=== PATIENT | male | born 1950 | race Caucasian/White ===

== ENCOUNTER 2020-11-19 08:47 | Emergency (ER) | payer OTHER ==
--- OUTSIDE RECORDS SUMMARY | 2020-11-19 08:49 | XMS REPORT | Continuity of Care Document ---
:1950 Author Organization [facility] t Address [address] [place] [address] [address] [place] [address] Care Team Providers Name Role Phone Doctor Unassigned, Name Attending Clinician Unavailable Problems This patient has no known problems. Allergies, Adverse Reactions, Alerts This patient has no known allergies or adverse reactions. Medications This patient has no known medications. Procedures This patient has no known procedures. Encounters Start End Encounter Admission Attending Care Care Encounter Source Date/Time Date/Time Type Type Clinicians Facility Department ID 2019-06-25 2019-06-25 Orders Doctor SONJA [id number] 00:00:00 00:00:00 Only UnassignedJOHN PAUL [id number] [place] [facility] [id number] Results This patient has no known results.
[2020-11-19] MEDS ORDERED: DIAZEPAM 5 MG TABLET ONE (09:47)
[2020-11-19] MEDS ORDERED: ONDANSETRON 4 MG (ODT) TAB ONE (09:48)
[2020-11-19 10:00] LABS: Basophils % 0.2 % (0-1.3); Hematocrit 43.1 % (39.6-49.0); Lymphocytes % 13.6 % (15.3-44.8); Protime INR 1.15; RBC Red Blood Cell Count 4.89 M/uL (4.33-5.43)
[2020-11-19 10:09] LABS: ALT/SGPT 23 U/L (12-78); AST/SGOT 25 U/L (15-37); Albumin 3.7 g/dL (3.4-5.0); Alkaline Phosphatase 74 U/L (45-117); BUN Blood Urea Nitrogen 17 mg/dL (7-18); Bicarbonate 26 mmol/L (21-32); Bilirubin Direct 0.2 mg/dL (0-0.2); Bilirubin Total 0.9 mg/dL (0.2-1.0); Glucose Level 102 mg/dL (74-106); Magnesium 2.2 mg/dL (1.8-2.4); NT PRO-BNP 32 pg/mL (<125); Potassium 3.2 mmol/L (3.5-5.1); Protein, Total 8.2 g/dL (6.4-8.2); Sodium Level 139 mmol/L (136-145); Troponin (Emerg Dept Use Only) < 0.02 ng/mL (0.0-0.045)
--- NOTE | 2020-11-19 11:44 | RAD REPORT ---
EXAM DESCRIPTION: RAD - Chest Single View - 11/19/2020 10:22 am CLINICAL HISTORY: dizziness, shortness of breath COMPARISON: Chest exam March 2017 TECHNIQUE: AP portable chest image was obtained 11/19/2020 10:22 am . FINDINGS: No focal mass consolidation. Interstitial markings are prominent but not substantially dif ferent from comparison. Baseline prominence could mask minimal edema or infiltrate. No mediastinal ma ss or hilar lymphadenopathy. Heart and vasculature are normal. No measurable pleural effusion and no pneumothorax. No acute bony abnormality seen. No acute aortic findings suspected. IMPRESSION: No acute cardiopulmonary process. Baseline chronic interstitial pattern is similar to comparison. Severity of chronic pattern could mas k early interstitial edema or infiltrate.
--- NOTE | 2020-11-19 11:51 | RAD REPORT ---
EXAM DESCRIPTION: CT - Head Brain Wo Cont - 11/19/2020 11:37 am CLINICAL HISTORY: dizziness, headache COMPARISON: Head angio dated 11/19/2020; Neck Angio dated 11/19/2020 TECHNIQUE: Axial 5 mm thick images of the head were obtained without IV contrast. All CT scans are performed using dose optimization technique as appropriate and may include automated exposure control or mA/KV adjustment according to patient size. FINDINGS: No intracranial hemorrhage, mass, edema or shift of mid-line structures. No acute cortical based infarction. No cortical edema or sulcal effacement. Mild atrophy and mild chronic ischemic miguelito nges are present. No abnormal extra-axial fluid collections. Ventricles are in proportion to volume l oss. Arterial and physiologic calcifications are present. Mastoid air cells and visualized portions of the paranasal sinuses are clear. No acute bony findings. IMPRESSION: Mild atrophy and mild chronic ischemic change. No acute findings seen.
--- NOTE | 2020-11-19 11:57 | RAD REPORT ---
EXAM DESCRIPTION: CT - Head angio - 11/19/2020 11:38 am CLINICAL HISTORY: DIZZINESS TECHNIQUE: During dynamic enhancement using nonionic IV contrast, axial 1 millimeter thick images of the head were obtained. Sagittal and axial reconstruction images were generated using MIP technique and reviewed. All CT scans are performed using dose optimization technique as appropriate and may include automated exposure control or mA/KV adjustment according to patient size. COMPARISON: CT head same date FINDINGS: No aneurysm or vascular malformation identified. Major venous sinuses are patent. No stenosis, named branch occlusion, vasculitis or other significant vascular finding identifiable. Cavernous sinus internal carotid calcifications do not cause significant luminal narrowing. IMPRESSION: Negative CT angio head examination.
--- NOTE | 2020-11-19 12:00 | RAD REPORT ---
EXAM DESCRIPTION: CT - Neck Angio - 11/19/2020 11:38 am CLINICAL HISTORY: dizziness TECHNIQUE: During dynamic enhancement using nonionic IV contrast, axial 2 mm thick images of the nec k were obtained. Sagittal and axial reconstruction images were generated using MIP technique and revi ewed. All CT scans are performed using dose optimization technique as appropriate and may include automated exposure control or mA/KV adjustment according to patient size. FINDINGS: No aneurysm or vascular malformation identified. No carotid or vertebral dissection. No aortic arch or great vessel origin abnormality seen. Right vertebral artery origin and proximal fe w cm and not optimally seen but no abnormality identified. No stenosis, vasculitis or other significa nt carotid artery finding. No focal abnormality of either vertebral artery. Basilar artery is normal. Cervical vertebral body degenerative change present with multilevel disc space narrowing in the mid a nd lower cervical spine. Multilevel bony foraminal encroachment present as well. IMPRESSION: CT angio neck study shows no significant or suspicious vascular finding.
[2020-11-19] MEDS ORDERED: NA CHLORIDE 0.9% 1,000 ML ONE (13:35)
[2020-11-19] MEDS ORDERED: MECLIZINE HCL 12.5 MG TAB ONE (13:35)
[2020-11-19] MEDS ORDERED: dexAMETHasone 10 MG/ML VIAL ONE (13:35)
[2020-11-19] MEDS ORDERED: LEVALBUTEROL 1.25 MG/3 ML NEB ONE (13:35)
[2020-11-19] MEDS ORDERED: ACETAMINOPHEN 500 MG TAB ONE (15:30)
--- NOTE | 2020-11-19 16:20 | ER ---
Nurse's Notes [facility] Name: Lionel Taylor Age: 70 yrs Sex: Male : 1950 Arrival Date: 11/19/2020 Time: 08:48 Bed 23 Private MD: Diagnosis: Other viral infections of unspecified site;Vertigo Presentation: 11/19 09:17 Chief complaint: Patient states: headaches and diarrhea for months, worse over past two iw weeks, also has a cough and dizziness when he coughs. Coronavirus screen: diarrhea, nausea, Client presents with at least one sign or symptom that may indicate coronavirus-19. Ebola Screen: Patient negative for fever greater than or equal to 101.5 degrees Fahrenheit, and additional compatible Ebola Virus Disease symptoms Patient denies exposure to infectious person. Patient denies travel to an Ebola-affected area in the 21 days before illness onset. No symptoms or risks identified at this time. Initial Sepsis Screen: Does the patient meet any 2 criteria? No. Patient's initial sepsis screen is negative. Does the patient have a suspected source of infection? No. Patient's initial sepsis screen is negative. Risk Assessment: Do you want to hurt yourself or someone else? Patient reports no desire to harm self or others. Onset of symptoms was September 2020. 09:17 Method Of Arrival: Ambulatory iw 09:17 Acuity: ROZINA 3 iw Historical: - PMHx: 09:19 Hyperlipidemia; Hypothyroidism; iw - PSHx: 09:19 rotator cuff; Knee surgery; iw - Immunization history:: Adult Immunizations up to date. - Social history:: Smoking status: . Screenin:19 Abuse screen: Denies threats or abuse. Denies injuries from another. Nutritional iw screening: No deficits noted. Tuberculosis screening: No symptoms or risk factors identified. Fall Risk None identified. Assessment: 09:19 General: Appears in no apparent distress. Behavior is calm, cooperative. Pain: iw Complains of pain in head. Neuro: Level of Consciousness is awake, alert, obeys commands, Oriented to person, place, time, situation, Moves all extremities. Full function. Neuro: Reports dizziness. Cardiovascular: Patient's skin is warm and dry. Respiratory: Airway is patent Breath sounds are clear bilaterally. GI: Reports diarrhea, nausea, vomiting. Derm: Skin is intact, is healthy with good turgor. Musculoskeletal: Range of motion: intact in all extremities. 13:30 Reassessment: pt still c/o dizziness and headache. iw 16:00 Reassessment: Patient appears in no apparent distress at this time. Patient and/or iw family updated on plan of care and expected duration. Pain level reassessed. Patient is alert, oriented x 3, equal unlabored respirations, skin warm/dry/pink. Vital Signs: 09:17 BP 143 / 90; Pulse 97; Resp 18; Temp 98.7; Pulse Ox 94% on R/A; iw 15:18 BP 115 / 65; Pulse 91; Resp 16; Temp 98.9; Pulse Ox 98% on R/A; iw ED Course: 08:48 Patient arrived in ED. as 09:18 Triage completed. iw 09:19 Arm band placed on. iw 09:20 Patient has correct armband on for positive identification. iw 09:22 Zachary Burleson PA is PHCP. jmm 09:23 Apollo Baeur MD is Attending Physician. jmm 09:29 Maribel Thakkar, MONA is Primary Nurse. iw 10:18 XRAY Chest (1 view) In Process Unspecified. EDMS 11:37 CT Head Brain wo Cont In Process Unspecified. EDMS 11:38 CT Head Angio In Process Unspecified. EDMS 11:38 CT Neck Angio In Process Unspecified. EDMS 13:00 Initial lab(s) drawn, by wy, sent to lab. Inserted saline lock: 20 gauge in right iw antecubital area, using aseptic technique. Blood collected. 16:19 Oscar Wright MD is Referral Physician. [facility] 16:19 Snehal Catehrine MD is Referral Physician. [facility] 16:19 Referral Physician role handed off by Snehal Catherine MD m 16:51 No provider procedures requiring assistance completed. IV discontinued, intact, iw bleeding controlled, No redness/swelling at site. Pressure dressing applied. Administered Medications: : Drug: Zofran (Ondansetron) 4 mg Route: PO; iw :41 Drug: Valium 5 mg Route: PO; iw 13:38 Drug: NS 0.9% 1000 ml Route: IV; Rate: 1 bolus; Site: right antecubital; iw 13:38 Drug: Xopenex (3) 1.25 mg Route: Inhalation; iw 13:39 Drug: Meclizine 25 mg Route: PO; iw 13:46 Drug: Decadron - Dexamethasone 10 mg Route: IVP; Site: right antecubital; iw 15:10 Drug: Tylenol 1000 mg Route: PO; iw 16:35 Drug: fentaNYL (PF) 25 mcg Route: IVP; Site: right antecubital; iw Outcome: 16:20 Discharge ordered by MD. alejandra 16:51 Discharged to home ambulatory, with family. iw 16:51 Condition: good 16:51 Discharge instructions given to patient, Instructed on discharge instructions, follow up and referral plans. medication usage, Demonstrated understanding of instructions, follow-up care, medications, Prescriptions given X 4. 16:52 Patient left the ED. 4 Addendum: 11/22/2020 09:32 Addendum: COVID-19 Result: Positive result giiven to ED physician to notify pt. d m5 Physician: Bryson Currie MD Physician attempted to contact pt. Physician left voice mail for pt to call the ED back. 10:00 Addendum: COVID-19 Result: Positive result giiven to ED physician to notify pt. d m5 Physician: Bryson Currie MD Physician was able to contact pt and pt was notified of positive COVID-19 swab result. Physician answered pt questions. Signatures: Dispatcher [employer] Leisa Katz, RN RN dm5 Zachary Burleson PA PA jmm Martinez, Amelia as Williams, Irene, RN RN [facility] Corrections: (The following items were deleted from the chart) 11/20 08:45 11/19 15:30 Reassessment: Patient appears in no apparent distress at this time. Patient iw and/or family updated on plan of care and expected duration. Pain level reassessed. Patient is alert, oriented x 3, equal unlabored respirations, skin warm/dry/pink. iw
--- NOTE | 2020-11-19 16:20 | EDPHYS ---
Physician Documentation [facility] Name: Lionel Taylor Age: 70 yrs Sex: Male : 1950 Arrival Date: 11/19/2020 Time: 08:48 Bed 23 Private MD: ED Physician Apollo Bauer HPI: 11/19 10:01 This 70 yrs old Male presents to ER via Ambulatory with complaints of Cough, jmm Congestion, Sneezing, Dizziness. 10:01 The patient presents with dizziness. Onset: The symptoms/episode began/occurred jmm acutely, 3 month(s) ago. Modifying factors: The symptoms are alleviated by holding head still, the symptoms are aggravated by movement of head, standing up, changing position. Associated signs and symptoms: Pertinent positives: nausea, vomiting, Pertinent negatives: chest pain. This is a 70 year old male with a history of hlp, hypothyroidism that presents to the ED with complaints of dizziness beginning 3 months ago. Patient states symptoms worsened over the past 2 weeks. . Historical: - PMHx: 09:19 Hyperlipidemia; Hypothyroidism; iw - PSHx: 09:19 rotator cuff; Knee surgery; iw - Immunization history:: Adult Immunizations up to date. - Social history:: Smoking status: . ROS: 10:01 Constitutional: Negative for fever, chills, and weight loss. jmm 10:01 Respiratory: Positive for cough. 10:01 Abdomen/GI: Positive for nausea and vomiting. 10:01 Neuro: Positive for dizziness. 10:01 All other systems are negative. Exam: 10:01 Constitutional: This is a well developed, well nourished patient who is awake, alert, jmm and in no acute distress. Head/Face: atraumatic. 10:01 Cardiovascular: Regular rate and rhythm. No edema appreciated Respiratory: Normal respirations, no respiratory distress appreciated Abdomen/GI: Non distended, soft Back: Normal ROM Skin: General appearance color normal 10:01 Eyes: Extraocular movements: intact throughout, Nystagmus: nystagmus with fast component noted, bilaterally. 10:01 Musculoskeletal/extremity: ROM: intact in all extremities. 10:01 Skin: Appearance: Color: normal in color. 10:01 Neuro: Orientation: is normal, Mentation: is normal, Memory: is normal, Cerebellar function: normal finger to nose testing. 10:01 Psych: Behavior/mood is pleasant, cooperative. Vital Signs: 09:17 BP 143 / 90; Pulse 97; Resp 18; Temp 98.7; Pulse Ox 94% on R/A; iw 15:18 BP 115 / 65; Pulse 91; Resp 16; Temp 98.9; Pulse Ox 98% on R/A; iw MDM: 09:53 Patient medically screened. [facility] 16:17 Data reviewed: vital signs, nurses notes. Counseling: I had a detailed discussion with alejandra the patient and/or guardian regarding: the historical points, exam findings, and any diagnostic results supporting the discharge/admit diagnosis, lab results, radiology results, the need for outpatient follow up, to return to the emergency department if symptoms worsen or persist or if there are any questions or concerns that arise at home. ED course: Patient is alert and non toxic in appearance in the ED. No signs of resp distress. Most likely has a viral syndrome, I do not suspect central vertigo. CTA negative. Patient is advised to follow up with neuro and ent. patient understood and agrees with the plan of care. . 11/19 09:25 Order name: Basic Metabolic Panel; Complete Time: 10:21 [facility] 11/19 09:25 Order name: CBC with Diff; Complete Time: 10:21 [facility] 11/19 09:25 Order name: LFT's; Complete Time: 10:21 [facility] 11/19 09:25 Order name: Magnesium; Complete Time: 10:21 [facility] 11/19 09:25 Order name: NT PRO-BNP; Complete Time: 10:21 [facility] 11/19 09:25 Order name: PT-INR; Complete Time: 10:21 [facility] 11/19 09:25 Order name: Troponin (emerg Dept Use Only); Complete Time: 10:21 [facility] 11/19 09:25 Order name: XRAY Chest (1 view); Complete Time: 11:51 [facility] 11/19 10:22 Order name: CT Head Brain wo Cont; Complete Time: 11:59 [facility] 11/19 10:22 Order name: CT Head Angio; Complete Time: 11:59 [facility] 11/19 10:22 Order name: CT Neck Angio; Complete Time: 12:04 [facility] 11/19 13:09 Order name: Flu; Complete Time: 15:31 [facility] 11/19 13:09 Order name: COVID-19 [facility] 11/19 09:25 Order name: EKG; Complete Time: 09:26 [facility] 11/19 09:25 Order name: Cardiac monitoring; Complete Time: 15:18 [facility] 11/19 09:25 Order name: EKG - Nurse/Tech; Complete Time: 15:18 [facility] 11/19 09:25 Order name: IV Saline Lock; Complete Time: 15:18 [facility] 11/19 09:25 Order name: Labs collected and sent; Complete Time: 09:42 [facility] 11/19 09:25 Order name: O2 Per Protocol; Complete Time: 15:18 [facility] 11/19 09:25 Order name: O2 Sat Monitoring; Complete Time: 15:18 [facility] Administered Medications: 09:41 Drug: Zofran (Ondansetron) 4 mg Route: PO; iw 09:41 Drug: Valium 5 mg Route: PO; iw 13:38 Drug: NS 0.9% 1000 ml Route: IV; Rate: 1 bolus; Site: right antecubital; iw 13:38 Drug: Xopenex (3) 1.25 mg Route: Inhalation; iw 13:39 Drug: Meclizine 25 mg Route: PO; iw 13:46 Drug: Decadron - Dexamethasone 10 mg Route: IVP; Site: right antecubital; iw 15:10 Drug: Tylenol 1000 mg Route: PO; iw 16:35 Drug: fentaNYL (PF) 25 mcg Route: IVP; Site: right antecubital; iw Disposition: 17:33 Co-signature as Attending Physician, Apollo Bauer MD. rn Disposition: 11/19/20 16:20 Discharged to Home. Impression: Other viral infections of unspecified site, Vertigo. - Condition is Stable. - Discharge Instructions: Viral Respiratory Infection, Labyrinthitis. - Prescriptions for promethazine- DM - take 5 milliliter by ORAL route every 4-6 hours; 120 milliliter. Prednisone 20 mg Oral Tablet - take 3 tablet by ORAL route once daily for 5 days; 15 tablet. Albuterol Sulfate 90 mcg/actuation - inhale 1-2 puff by INHALATION route every 4-6 hours; 1 Inhaler. Ultracet 37.5- 325 mg Oral Tablet - take 1 tablet by ORAL route every 6 hours - for up to 5 days; do not exceed 8 tablets per day.; 20 tablet. - Medication Reconciliation Form, Thank You Letter, Antibiotic Education, Prescription Opioid Use form. - Follow up: Oscar Wright MD; When: 2 - 3 days; Reason: Recheck today's complaints, Continuance of care, Re-evaluation by your physician. Follow up: Snehal Catherine MD; When: 2 - 3 days; Reason: Recheck today's complaints, Continuance of care, Re-evaluation by your physician. Signatures: Dispatcher [employer] EDMS Zachary Burleson PA PA jmm Williams, Irene, MONA RN Apollo Harris MD MD rn Huhn, Donald [facility] Corrections: (The following items were deleted from the chart) 16:52 16:20 11/19/2020 16:20 Discharged to Home. Impression: Other viral infections of 4 unspecified site; Vertigo. Condition is Stable. Forms are Medication Reconciliation Form, Thank You Letter, Antibiotic Education, Prescription Opioid Use. Follow up: Oscar Wright; When: 2 - 3 days; Reason: Recheck today's complaints, Continuance of care, Re-evaluation by your physician. alejandra
[2020-11-19] MEDS ORDERED: FENTANYL CITR 100 MCG/2 ML ONE (16:49)
[2020-11-19 17:00] VITALS: BP 115/65; TEMP 98.9; O2SAT 98
== END 2020-11-19 16:52 | disposition home or self-care (01) ==
LOC: ER 08:47
DX: U07.1 COVID-19 (principal); B34.8 Other viral infections of unspecified site; R42 Dizziness and giddiness; E78.5 Hyperlipidemia, unspecified; E03.9 Hypothyroidism, unspecified
CPT/HCPCS: 93005; 85025; 80048; 36415; 83735; 85610; 80076; 84484; 83880; 87804 ×2; 70450; 70496; 70498; 71045; 96375; 96374; 99284; U0002; Q9967; J3010; J1100; J7030

== ENCOUNTER 2023-08-20 21:02 | Inpatient (IN) | payer OTHER ==
--- OUTSIDE RECORDS SUMMARY | 2023-08-20 21:04 | XMS REPORT | Continuity of Care Document ---
:1950 Author Organization [facility] t Address [address] [place] [address] [place] [id number] Care Team Providers Name Role Phone Doctor Unassigned, [place] Attending Clinician Unavailable Payers Payer Name Policy Type Policy Number Effective Date Expiration Date S ource Problems This patient has no known problems. Allergies, Adverse Reactions, Alerts This patient has no known allergies or adverse reactions. Social History Social Habit Start Date Stop Date Quantity Comments Source Sex Assigned At Uni versity [facility] Smoking Status Start Date Stop Date Source Unknown if ever smoked [facility] y [facility] Medications Ordered Filled Start Stop Current Ordering Indication Dosage Frequency Signature Comments Components Source Medication Medication Date Date Medication? Clinician (SIG) Name Name methylPREDN 2018- Yes [id number] Take by Univers ISolone 3-29 mouth ity of (MEDROL, 00:00: SEE-INSTRU Troy as HARINI,) 4 mg 00 CTIONS. Medica l tablets follow Branch package directions levothyroxi 2018- Yes Univkatelynn s ne 200 mcg 3-21 ity of tablet 00:00: [place] 00 [facility] Branch atorvastati 2018- Yes Univkatelynn s n 20 mg 2-11 ity of tablet 00:00: [place] 00 [facility] diclofenac 2014- Yes TAKE 1 Unive rs (VOLTAREN) 1-10 TABLET BY ity of 75 mg EC 00:00: MOUTH [place] tablet 00 TWICE Medical DAILY Branch Procedures Procedure Date / Time Performed Performing Clinician [facility] e REFERRAL- 2019-06-25 05:01:00 Doctor Unassigned, No [facility] [place] REQUEST/RESPONSE Name Medical Branch Encounters Start End Encounter Admission Attending Care Care Encounter Source Date/Time Date/Time Type Type Clinicians Facility Department ID 2019-06-25 2019-06-25 Orders Doctor CASILLAS [id number] 00:00:00 00:00:00 Only Unassigned, JOHN PAUL [id number] [place] [facility] [id number] 2019-06-25 2019-06-25 Orders Doctor CASILLAS [id number] Univers 00:00:00 00:00:00 Only Unassigned, JOHN PAUL [id number] ity of [place] [facility] [id number] [place] [id number] [facility] 009 Branch Results This patient has no known results.
--- NOTE | 2023-08-20 21:51 | RAD REPORT ---
EXAM DESCRIPTION: RAD - Chest Single View - 08/20/2023 9:44 pm CLINICAL HISTORY: chest pain Chest pain. COMPARISON: Chest Single View dated 11/19/2020 FINDINGS: Portable technique limits examination quality. The lungs are grossly clear. The heart is normal in size. No displaced fractures. IMPRESSION: No acute intrathoracic process suspected.
[2023-08-20 22:18] LABS: Absolute Lymphocytes (CBC) 2.4 K/uL (0.7-4.9); Hematocrit 42.1 % (39.6-49.0); Lymphocytes % 28.8 % (15.3-44.8); MCV 89.6 fL (80-100); MPV 9.5 fL (7.6-11.3); Platelets 196 thou/uL (152-406); RBC Red Blood Cell Count 4.69 M/uL (4.33-5.43)
[2023-08-20 22:26] LABS: Protime INR 1.01
[2023-08-20 22:34] LABS: Albumin 4.2 g/dL (3.4-5.0); Bilirubin Direct 0.1 mg/dL (0-0.2); Bilirubin Indirect, Calculated 0.5 mg/dL (0.2-0.8); Bilirubin Total 0.6 mg/dL (0.2-1.0); Magnesium 2.1 mg/dL (1.6-2.4); Potassium 3.8 mEq/L (3.5-5.1); Protein, Total 7.3 g/dL (6.4-8.2)
[2023-08-20 22:37] LABS: Troponin High Sensitivity 626.9 pg/mL (<58.9)
[2023-08-20] MEDS ORDERED: MORPHINE 4 MG/ML SYR ONE (22:39)
[2023-08-20] MEDS ORDERED: ONDANSETRON 4 MG/2 ML VIAL ONE (22:39)
--- NOTE | 2023-08-20 22:52 | ER ---
Nurse's Notes [facility] Name: Lionel Taylor Age: 72 yrs Sex: Male : 1950 Arrival Date: 08/20/2023 Time: 21:02 Bed 18 Private MD: Diagnosis: Chest pain, unspecified-NSTEMI Presentation: 08/20 21:22 Chief complaint: Patient states: chest pain to the center of his chest onset this cm10 morning. Pt states that the pain radiates down left arm. Pt describes the pain as a sharp, shooting pain. Coronavirus screen: Vaccine status: Patient reports being unvaccinated. Ebola Screen: Patient denies travel to an Ebola-affected area in the 21 days before illness onset. No symptoms or risks identified at this time. Initial Sepsis Screen: Does the patient meet any 2 criteria? No. Patient's initial sepsis screen is negative. Does the patient have a suspected source of infection? No. Patient's initial sepsis screen is negative. Risk Assessment: Do you want to hurt yourself or someone else? Patient reports no desire to harm self or others. Onset of symptoms was August 20, 2023. 21:22 Method Of Arrival: Ambulatory cm10 21:22 Acuity: ROZINA 2 cm10 Historical: - Allergies: 21:24 No Known Allergies; cm10 - PMHx: 21:24 Hyperlipidemia; Hypothyroidism; cm10 - Immunization history:: Adult Immunizations unknown. - Social history:: Smoking status: unknown. Screenin:14 [facility] ED Fall Risk Assessment (Adult) History of falling in the last 3 months, jb4 including since admission No falls in past 3 months (0 pts) Confusion or Disorientation No (0 pts) Score/Fall Risk Level 0 - 2 = Low Risk Oriented to surroundings, Maintained a safe environment. Abuse screen: Denies threats or abuse. Nutritional screening: No deficits noted. Tuberculosis screening: No symptoms or risk factors identified. Assessment: 21:15 General: Appears in no apparent distress. comfortable, Behavior is calm, cooperative, jb4 appropriate for age. Pain: Complains of pain in chest Pain radiates to left arm Pain currently is 5 out of 10 on a pain scale. Neuro: Level of Consciousness is awake, alert, obeys commands, Oriented to person, place, time, situation. Cardiovascular: Patient's skin is warm and dry. Respiratory: Airway is patent Respiratory effort is even, unlabored, Respiratory pattern is regular, symmetrical. GI: No signs and/or symptoms were reported involving the gastrointestinal system. : No signs and/or symptoms were reported regarding the genitourinary system. EENT: No signs and/or symptoms were reported regarding the EENT system. Derm: Skin is intact, Skin is pink, warm \T\ dry. Musculoskeletal: Circulation, motion, and sensation intact. Range of motion: intact in all extremities. 22:04 Reassessment: Patient appears in no apparent distress at this time. Patient and/or jb4 family updated on plan of care and expected duration. Pain level reassessed. Patient is alert, oriented x 3, equal unlabored respirations, skin warm/dry/pink. Vital Signs: 21:22 BP 166 / 97; Pulse 88; Resp 16; Temp 98.2(O); Pulse Ox 97% ; Weight 99.79 kg; Height 5 cm10 ft. 9 in. ; Pain 3/10; 22:05 BP 162 / 98; Pulse 76; Resp 21; Pulse Ox 95% ; jb4 23:14 BP 153 / 102; Pulse 77; Resp 16; Pulse Ox 94% on R/A; Weight 104.8 kg (M); jb4 21:22 Body Mass Index 32.49 (104.80 kg, 175.26 cm) cm10 21:22 Pain Scale: Adult cm10 ED Course: 21:02 Patient arrived in ED. ag3 21:05 [facility] Hawthorne [facility]C [facility] kb 21:06 Destin Neal MD is Attending Physician. kb 21:23 Triage completed. cm10 21:24 Arm band placed on Patient placed in an exam room, on a stretcher. cm10 21:39 Inserted saline lock: 18 gauge in right antecubital area, using aseptic technique. lg3 Blood collected. 21:46 Chest Single View In Process Unspecified. EDMS 22:02 Robert Gracia, MONA is Primary Nurse. jb4 22:52 Jose Bauer MD is Hospitalizing Provider. kb 22:59 Rodríguez Colon MD is Hospitalizing Provider. kb Administered Medications: 22:31 Drug: morphine IVP or IV 4 mg IVP once over 4 mins Route: IVP; Infused Over: 4 mins; jb4 Site: right antecubital; 22:31 Drug: Ondansetron IVP 4 mg IVP once; over 2 minutes Route: IVP; Site: right antecubital;jb4 23:34 Drug: Heparin (IL-Bolus No thrombolytic) - HEParin IVP 60 units/kg IVP once; Max 5000 lg3 units {Co-Signature: loida (Robert Gracia RN).} Route: IVP; Site: right hand; 23:34 Drug: Heparin ([place] Drip) 12 units/kg/[place] - ([place] [address] units, D5W IV 500 ml) IV at lg3 calculated rate Per protocol; Max initial rate 1000 units/hr {Co-Signature: loida (Robert Gracia RN).} Route: IV; Rate: calculated rate; Site: right hand; 08/21 04:45 Follow up: Rate change 1100 units/hr 4 08/20 23:34 Drug: Metoprolol PO 25 mg PO once Route: PO; jb4 Outcome: 22:52 Decision to Hospitalize by Provider. 08/21 11:17 Patient left the ED. kd3 Signatures: Dispatcher [employer] EDMS Yadi Hawthorne, CORNER BRACE BLOCK MACHINE OPERATOR-C CORNER BRACE BLOCK MACHINE OPERATOR-Ckb Robert Gracia, RN RN jb4 Nehal Chester Lacie, MONA RN [email or web address] Connie Smith RN RN kd3 Taylor Byers RN RN cm10 Robert Gracia RN jb4
--- NOTE | 2023-08-20 22:52 | EDPHYS ---
[facility] Name: Lionel Taylor Age: 72 yrs Sex: Male : 1950 Arrival Date: 08/20/2023 Time: 21:02 Bed 18 Private MD: ED Physician Destin Neal HPI: 08/21 00:20 This 72 yrs old Male presents to ER via Ambulatory with complaints of Chest Pain. kb 00:20 The patient or guardian reports chest pain that is located primarily in the substernal kb area. Onset: this morning. The pain radiates to the left arm. Associated signs and symptoms: Pertinent positives: shortness of breath. The chest pain is described as a heaviness. Duration: The patient or guardian reports a single episode, that is still ongoing. Modifying factors: The symptoms are alleviated by nothing. the symptoms are aggravated by nothing. Severity of pain: At its worst the pain was moderate in the emergency department the pain is unchanged. The patient has not experienced similar symptoms in the past. The patient has not recently seen a physician. Historical: - Allergies: 08/20 21:24 No Known Allergies; cm10 - PMHx: 21:24 Hyperlipidemia; Hypothyroidism; cm10 - Immunization history:: Adult Immunizations unknown. - Social history:: Smoking status: unknown. ROS: 08/21 00:19 Constitutional: Negative for fever, chills, and weight loss, kb Cardiovascular: Positive for chest pain, Respiratory: Positive for shortness of breath, MS/extremity: Positive for pain, of the left arm, All other systems are negative, Exam: 00:19 Constitutional: This is a well developed, well nourished patient who is awake, alert, kb and in no acute distress. Head/Face: Normocephalic, atraumatic. ENT: Moist Mucous membranes Cardiovascular: Regular rate Respiratory: Respirations even and unlabored. No increased work of breathing. Talking in full sentences Abdomen/GI: Soft, non-tender. No distention Skin: Warm, dry with normal turgor. Normal color. MS/ Extremity: Pulses equal, no cyanosis. Neurovascular intact. Full, normal range of motion. Neuro: Awake and alert, GCS 15, oriented to person, place, time, and situation. Moves all extremities. Normal gait. 00:19 ECG was reviewed by the Attending Physician. Vital Signs: 08/20 21:22 BP 166 / 97; Pulse 88; Resp 16; Temp 98.2(O); Pulse Ox 97% ; Weight 99.79 kg; Height 5 cm10 ft. 9 in. ; Pain 3/10; 22:05 BP 162 / 98; Pulse 76; Resp 21; Pulse Ox 95% ; jb4 23:14 BP 153 / 102; Pulse 77; Resp 16; Pulse Ox 94% on R/A; Weight 104.8 kg (M); jb4 21:22 Body Mass Index 32.49 (104.80 kg, 175.26 cm) cm10 21:22 Pain Scale: Adult cm10 MDM: 21:06 Patient medically screened. kb 08/21 00:20 Data reviewed: vital signs, nurses notes. kb 00:23 Differential diagnosis: abnormal EKG, acute myocardial infarction, coronary artery kb disease chest wall pain, congestive heart failure gastroesophageal reflux disease (GERD), pulmonary embolus, stable angina, unstable angina. The patient was not given aspirin in the Emergency Department. Patient reports taking aspirin within the past 24 hours. Consideration of Admission/Observation Patient was admitted/placed on observation. Escalation of care including admission/observation considered. Management of patient was discussed with the following: Hospitalist: JARRED Jones accepts pt for admission under Dr Colon. Counseling: I had a detailed discussion with the patient and/or guardian regarding the historical points, exam findings, and any diagnostic results supporting the discharge/admit diagnosis, lab results, radiology results, the need for further work-up and treatment in the hospital. 08/20 21:15 Order name: Basic Metabolic Panel 08/20 21:15 Order name: CBC with Diff 08/20 21:15 Order name: LFT's 08/20 21:15 Order name: Magnesium 08/20 21:15 Order name: NT PRO-BNP 08/20 21:15 Order name: PT-INR 08/20 21:15 Order name: Troponin HS 08/20 22:12 Order name: Basic Metabolic Panel; Complete Time: 22:38 EDMS 08/20 22:12 Order name: Liver (Hepatic) Function; Complete Time: 22:38 EDMS 08/20 22:12 Order name: Troponin High Sensitivity; Complete Time: 22:38 EDMS 08/20 22:12 Order name: NT PRO-BNP; Complete Time: 22:38 EDMS 08/20 22:12 Order name: Magnesium; Complete Time: 22:38 EDMS 08/20 22:12 Order name: CBC with Automated Diff; Complete Time: 22:27 EDMS 08/20 22:12 Order name: Protime (+INR); Complete Time: 00:44 EDMS 08/20 23:16 Order name: Ptt, Activated jb4 08/21 00:40 Order name: PTT, Activated Partial Thromb; Complete Time: 00:44 EDMS 08/21 03:42 Order name: Ptt, Activated jb4 08/21 04:28 Order name: PTT, Activated Partial Thromb; Complete Time: 05:15 EDMS 08/21 04:35 Order name: CBC with Automated Diff; Complete Time: 05:15 EDMS 08/21 04:55 Order name: Basic Metabolic Panel; Complete Time: 05:15 EDMS 08/21 04:55 Order name: Troponin High Sensitivity; Complete Time: 05:15 EDMS 08/21 04:55 Order name: Lipid Profile; Complete Time: 05:15 EDMS 08/21 04:55 Order name: T4 Free; Complete Time: 05:15 EDMS 08/21 04:55 Order name: Thyroid Stimulating Hormone; Complete Time: 05:15 EDMS 08/21 08:47 Order name: PTT, Activated Partial Thromb EDMS 08/20 21:15 Order name: XRAY Chest (1 view) kb 08/20 21:31 Order name: Chest Single View; Complete Time: 21:53 EDMS 08/20 21:15 Order name: EKG; Complete Time: 02:39 kb 08/20 21:15 Order name: Cardiac monitoring; Complete Time: 21:18 kb 08/20 21:15 Order name: EKG - Nurse/Tech; Complete Time: 21:18 kb 08/20 21:15 Order name: IV Saline Lock; Complete Time: 21:18 kb 08/20 21:15 Order name: Labs collected and sent; Complete Time: 21:18 kb 08/20 21:15 Order name: O2 Per Protocol; Complete Time: 21:18 kb 08/20 21:15 Order name: O2 Sat Monitoring; Complete Time: 21:18 kb EC:19 Rate is 81 beats/min. Rhythm is regular. QRS [place] is Normal. LA interval is normal at kb 178 msec. QRS interval is normal at 96 msec. QT interval is normal at 413 msec. Administered Medications: 08/20 22:31 Drug: morphine IVP or IV 4 mg IVP once over 4 mins Route: IVP; Infused Over: 4 mins; jb4 Site: right antecubital; 22:31 Drug: Ondansetron IVP 4 mg IVP once; over 2 minutes Route: IVP; Site: right antecubital;jb4 23:34 Drug: Heparin (IL-Bolus No thrombolytic) - HEParin IVP 60 units/kg IVP once; Max 5000 lg3 units {Co-Signature: loida (Robert Gracia RN).} Route: IVP; Site: right hand; 23:34 Drug: Heparin ([place] Drip) 12 units/kg/[place] - ([place] [address] units, D5W IV 500 ml) IV at lg3 calculated rate Per protocol; Max initial rate 1000 units/hr {Co-Signature: loida (Robert Gracia RN).} Route: IV; Rate: calculated rate; Site: right hand; 08/21 04:45 Follow up: Rate change 1100 units/hr [facility] 08/20 23:34 Drug: Metoprolol PO 25 mg PO once Route: PO; jb4 Disposition: 08/21 00:41 Co-signature as Attending Physician, Destin Neal MD I agree with the assessment sp4 and plan of care. I reviewed the patient's care provided by Advanced Practice Provider \T\ agree w/ the diagnosis \T\ care plan. I personally saw the pt \T\ performed a substantive portion of the visit, incldng all aspects of the (History/Exam/Medical Decision Making). Disposition Summary: 08/20/23 22:52 Hospitalization Ordered Notes: Hospitalization Status: Inpatient Admission kb Condition: Stable kb Problem: new kb Symptoms: are unchanged kb Bed/Room Type: Standard kb Provider: Rodríguez Colon(08/20/23 22:59) kb Location: Telemetry/MedSurg (Inpatient)(08/21/23 11:00) hb Room Assignment: 211(08/21/23 11:00) hb Diagnosis - Chest pain, unspecified - NSTEMI kb Forms: - Medication Reconciliation Form kb - SBAR form kb - Leadership Thank You Letter kb Signatures: Dispatcher [employer] ED Yadi Hawthorne, GALLERY HOST-C GALLERY HOST-Ckb Daniel Robert, GALLERY HOST-C GALLERY HOST-Cla1 Arabella Alvarez, RN RN cg Naya Oakes RN RN Robert Gracia, MONA RN jb4 Mayra Urrutia, MONA RN lg3 Destin Neal MD MD sp4 Taylor Byers RN RN cm10 Robert Gracia RN jb4 Corrections: (The following items were deleted from the chart) 08/20 22:59 22:52 Jose Bauer kb 23:13 22:52 [facility] 23:13 22:52 kb 08/21 00:23 00:20 Associated signs and symptoms: The patient has no apparent associated signs or kb symptoms, kb 11:08/20 23:13 [facility] ER HOLD [facility] 08/21 11:08/20 23:13 ERHOLD- [facility]
--- NOTE | 2023-08-20 23:17 | P.HP ---
Certification for Inpatient Patient admitted to: Inpatient With expected LOS: >2 Midnights Patient will require the following post-hospital care: None Practitioner: I am a practitioner with admitting privileges, knowledge of patient current condition, hospital course, and medical plan of care. Services: Services provided to patient in accordance with Admission requirements found in Title 42 Section 412.3 of the Code of Federal Regulations Patient History Date of Service: 08/20/23 Reason for admission: NSTEMI History of Present Illness: 72-year-old male with history of hyperlipidemia, hypothyroidism presents to the emergency room for chest pain. Reports pain began while at rest this morning described as sharp substernal radiating to his left arm. Was persistent 8 out of 10 for the day today, he took 3 chewable aspirin prior to arrival to the emergency department. He was evaluated in the emergency department EKG without STEMI criteria, initial high suspicion noted elevated 626.9 other labs unremarkable, pain improved with IV morphine. Patient started on heparin drip in ED, will be admitted for NSTEMI. Allergies No Known Allergies Allergy (Unverified 04/20/17 14:49) - Past Medical/Surgical History -: Hyperlipidemia -: Hypothyroidism -: Shoulders, knees Psychosocial/ Personal History: Lives at home with family - Family History Father -: Heart disease - Social History Smoking Status: Never smoker Alcohol use: No CD- Drugs: No Caffeine use: Yes Place of Residence: Home Review of Systems 10-point ROS is otherwise unremarkable Cardiovascular: Chest Pain Physical Examination - Physical Exam General: Alert, In no apparent distress, Oriented x3 HEENT: Atraumatic, PERRLA, Mucous membr. moist/pink, EOMI, Sclerae nonicteric Neck: Supple, 2+ carotid pulse no bruit, No LAD, Without JVD or thyroid abnormality Respiratory: Clear to auscultation bilaterally, Normal air movement Cardiovascular: Regular rate/rhythm, Normal S1 S2 Gastrointestinal: Normal bowel sounds, No tenderness Musculoskeletal: No tenderness Integumentary: No rashes Neurological: Normal speech, Normal strength at 5/5 x4 extr, Normal tone, Normal affect - Studies Laboratory Data (last 24 hrs) 08/20/23 08/20/23 08/20/23 21:16 21:16 21:16 WBC 8.30 Hgb 15.0 Hct 42.1 Plt Count 196 PT 11.1 INR 1.01 Sodium 137 Potassium 3.8 BUN 19 H Creatinine 1.06 Glucose 142 H Magnesium 2.1 Total Bilirubin 0.6 AST 23 ALT 48 Alkaline Phosphatase 75 Assessment and Plan - Plan Assessment: NSTEMI, ACS Hyperlipidemia Hypothyroidism Plan: NSTEMI, ACS N.p.o., aspirin, statin, heparin drip, beta-max, cardiology consult, echocardiogram, as needed nitroglycerin/morphine. Had stress test greater than 30 years ago, has never had a heart catheterization. Pain improved after morphine. Hyperlipidemia Hypothyroidism Continue home medications. DVT PPX: Heparin drip Code status: Full Discharge Plan: Home Plan to discharge in: 48 Hours - Advance Directives Does patient have a Living Will: No Does patient have a Durable POA for Healthcare: No - Code Status/Comfort Care Code Status Assessed: Yes (full code) Critical Care: No Time Spent Managing Pts Care (In Minutes): 55
[2023-08-20] MEDS ORDERED: HEPARIN 5000 UNIT/ML 1 ML VIAL ONE (23:35)
[2023-08-20] MEDS ORDERED: METOPROLOL TAR 25 MG TAB ONE (23:35)
[2023-08-20] MEDS ORDERED: HEPARIN/D5W 25,000 UNIT/500 ML BAG IV ONE (23:35)
[2023-08-21 00:01] VITALS: BMI 35.1
[2023-08-21] MEDS ORDERED: HEPARIN/D5W 25,000 UNIT/500 ML BAG IV SCH ×2 (01:05→20:00)
[2023-08-21] MEDS ORDERED: MORPHINE 2 MG/ML SYR IV PRN (01:05)
[2023-08-21] MEDS ORDERED: ONDANSETRON 4 MG/2 ML VIAL IV PRN (01:05)
[2023-08-21] MEDS ORDERED: NITROGLYCERIN 0.4 MG/TAB SL PRN (01:05)
[2023-08-21 04:28] LABS: Absolute Lymphocytes (CBC) 2.5 K/uL (0.7-4.9); Hematocrit 40.4 % (39.6-49.0); Lymphocytes % 33.6 % (15.3-44.8); MCV 89.5 fL (80-100); MPV 9.2 fL (7.6-11.3); Platelets 202 thou/uL (152-406); RBC Red Blood Cell Count 4.51 M/uL (4.33-5.43)
[2023-08-21 04:50] LABS: Potassium 4.1 mEq/L (3.5-5.1)
[2023-08-21 04:53] LABS: Thyroid Stimulating Hormone 3.97 uIU/mL (0.358-3.740)
[2023-08-21 04:54] LABS: Troponin High Sensitivity 3172.5 pg/mL (<58.9)
[2023-08-21] MEDS: METOPROLOL TAR 25 MG TAB PO SCH ×2 (06:00→17:16)
[2023-08-21] MEDS ORDERED: PNEUMOCOCCAL VACCINE 0.5 ML IMVAC ONE (08:00)
[2023-08-21] MEDS ORDERED: INFLUENZA VACCINE (for 6+ mo) 0.5 ML DOSE IMVAC ONE (08:00)
[2023-08-21] MEDS: ASPIRIN EC 81 MG TAB PO SCH (08:24)
[2023-08-21] MEDS ORDERED: ASPIRIN 81 MG CHEWABLE TABLET ONE (08:36)
[2023-08-21] MEDS ORDERED: NA CHLORIDE 0.9% 500 ML ONE (11:18)
[2023-08-21] MEDS ORDERED: HEPA 1000U/500MLS 2,000 UNIT/1,000 ML BAG IV ONE (11:22)
[2023-08-21] MEDS ORDERED: FENTANYL CITR 100 MCG/2 ML ONE (11:23)
[2023-08-21] MEDS ORDERED: VERAPAMIL HCL 10 MG/4 ML VIAL IV ONE (11:23)
[2023-08-21] MEDS ORDERED: HEPARIN 5000 UNIT/ML 1 ML VIAL ONE (11:23)
[2023-08-21] MEDS ORDERED: LIDOCAINE 1% MPF 30 ML VIAL ONE (11:23)
[2023-08-21] MEDS ORDERED: MIDAZOLAM HCL 2 MG/2 ML INJ ONE (11:23)
[2023-08-21] MEDS ORDERED: NITROGLYCERIN/D5W 25 MG/250 ML BTL IV ONE (11:24)
[2023-08-21] MEDS ORDERED: HEPARIN 10,000 UNIT/10 ML VIAL IV ONE (11:52)
[2023-08-21] MEDS ORDERED: FLUMAZENIL 0.1 MG/ML (5 mL VIAL) IV ONE (12:29)
[2023-08-21] MEDS ORDERED: NALOXONE 0.4 MG/ML VIAL ONE (12:29)
[2023-08-21] MEDS ORDERED: CLOPIDOGREL 75 MG TABLET ONE (12:52)
[2023-08-21] MEDS ORDERED: ACETAMINOPHEN 325 MG TABLET ONE (13:40)
--- NOTE | 2023-08-21 14:05 | OP ---
Date of Procedure: 08/21/2023 Surgeon: YARI LUNA Procedures Performed: 1.Selective coronary angiogram. 2.Left heart catheterization. 3.PCI of severe mid right PDA stenosis, used 2.25 x 20 mm Synergy drug-eluting stent. Indication: Ioq-DD-hennmqoix myocardial infarction. Access: 1.Right radial artery 6-[place] closed with TR band. 2.Right femoral artery 6-[place] closed with 6-[place] Angio-Seal. Complications: None. Bleeding: Less than 20 mL. Anesthesia: Total sedation time was 50 minutes. Used fentanyl and Versed. Description Of Procedure: After risks, benefits, alternatives were explained, patient agreed to proc edure and signed informal consent. Patient was brought into the cardiac catheterization laboratory, prepped and draped in the usual sterile fashion. Then, I accessed right radial artery using Decalog c micropuncture kit, placed 6-[place] Slender sheath and took a 5-[place] Hurst 4.0 catheter in the aor tic root, however, due to anatomy and tortuosity, could not engage the coronaries, then I abandoned t his access, took the catheter out and I accessed right femoral artery using micropuncture kit, ultras ound guidance, and fluoroscopy, placed 6-[place] Sullivan sheath and took 6-[place] JL3.5 catheter into the aortic root, engaged the left main, took standard views and then I exchanged for 6-[place] JR4 ca theter and engaged the RCA, took standard views and the catheter was pushed over the wire into the LV , measured the LVEDP, and pullback did not record any gradient and then I gave systemic heparin to as sure ACT level above 250 throughout the procedure and then I took a 6-[place] 3DRC guide into the aort ic root, engaged the RCA and took short Runthrough wire and placed it distally and then I used a 2.5 balloon to re-dilate the lesion of the PDA and expanded very well and then I placed 2.25 x 20 mm Syne rgy drug-eluting stent with excellent results. Then I removed the wire and final angiogram was satis factory. I removed the guide and the sheath, placed a 6-[place] Angio-Seal for closure with good hemo stasis and then I removed the sheath and placed TR band with good hemostasis. Findings: 1.Left main; very large and normal. 2.LAD, very large vessel proximal with luminal irregularities. Mid is focal 40% and then mid to dis unique, there is focal 50% and then luminal irregularities. Diagonal branches are with luminal irregula rities. 3.Left circumflex. It is codominant circulation, very large and with some luminal irregularities th roughout. 4.RCA; very large and also codominant mid 50% and the right PDA has mid 90% stenosis, status post russo ccessful PCI as above. 5.LVEDP is normal at 8 mmHg. Conclusion: 1.Severe right PDA stenosis, status post successful PCI as above, otherwise moderate nonobstructive coronary artery disease. 2.Normal LVEDP. Plan: Aspirin, Plavix, and statin, and patient can be released within the next 24 hours after obtain ing an echo. SR/MODL Voice ID: [id number] Report ID: [id number]
--- NOTE | 2023-08-21 14:15 | CON ---
Date of Consultation: 08/21/2023 Reason For Consultation: Chest pain and elevated troponin. History Of Present Illness: This is a 72-year-old male with past medical history of dyslipidemia, hy pothyroidism, presented with chest pain, retrosternal, radiates to the left arm that comes and goes a nd upon evaluation in the emergency room, EKG was normal. Had a first set of cardiac enzymes, was el evated at 626 and jumped to 5000. He is chest pain-free at the present time. No nausea or diaphores is or vomiting. Past Medical History: Dyslipidemia and hypothyroidism. Medications: Refer to reconciliation sheet for detailed list. Allergies: NO KNOWN DRUG ALLERGIES. Family History: No premature coronary artery disease or cancer. Social History: He chews tobacco. Drinks occasionally. Does not use any drugs. Family History: No premature coronary artery disease or cancer. Review of Systems: All systems reviewed and they were negative except what mentioned in HPI. Physical Examination: Vital Signs: Reviewed. Head and Neck: Pupils are equal, reactive to light. Intact eye movements. No JVD. No cervical lym phadenopathy. Neck is supple. Thyroid is not enlarged. Lungs: Clear to auscultation bilaterally. No rhonchi, wheezing, or crackles. No accessory muscle u se. Heart: Regular rate and rhythm. No extra sounds. Abdomen: Soft, nontender. Bowel sounds positive. No organomegaly. No masses or hernia. No rigidi ty or rebound. Extremities: No edema, clubbing, or cyanosis. Intact pulses. Skin: No rash. No nodule. Neurologic: Alert, awake, oriented x3. No acute focal deficits appreciated. Lymph Nodes: No cervical or axillary lymphadenopathy. Investigations: Troponin peaked at 5000 in range. Assessment And Recommendations: 1.Iwd-XI-kwrmevgfp myocardial infarction. He is n.p.o. Plan for coronary angiogram. Continue aspi rin and heparin drip, pending heart catheterization. 2.Dyslipidemia. Recommend Lipitor 40 mg q.h.s. 3.Hypothyroidism. Check TSH. SR/MODL Voice ID: [id number] Report ID: [id number]
--- NOTE | 2023-08-21 15:07 | EKG ---
Test Date: 2023-08-20 Test Time: 21:13:31 Human Capital Consultant: HARIS MEASUREMENT RESULTS: Intervals: Rate: 81 MS: 178 QRSD: 96 QT: 356 QTc: 413 [place]: P: 59 MS: 178 QRS: 52 T: 50 INTERPRETIVE STATEMENTS: Normal sinus rhythm Normal ECG Compared to ECG 11/19/2020 13:03:42 ST (T wave) deviation no longer present Electronically Signed On 08-21-23 15:05:05 CDT by Brandon Wright
[2023-08-21] MEDS ORDERED: ACETAMINOPHEN 325 MG TABLET PO PRN (18:33)
--- NOTE | 2023-08-21 18:56 | P.PN ---
Subjective Date of Service: 08/21/23 Chief Complaint: NSTEMI Subjective: Improving Having less chest pain after cath, improving. <Robert Sanchez - Last Filed: 08/21/23 18:53> Date of Service: 08/21/23 <Rodríguez Colon - Last Filed: 08/21/23 19:55> Review of Systems Unremarkable <Robert Sanchez - Last Filed: 08/21/23 18:53> Physical Examination - Vital Signs Temperature: 98.2 F Blood Pressure: 128/60 Pulse: 94 Respirations: 16 Pulse Ox (%): 98 - Physical Exam General: Alert, In no apparent distress, Oriented x3 HEENT: Atraumatic, PERRLA, EOMI Neck: Supple, JVD not distended Respiratory: Clear to auscultation bilaterally, Normal air movement Cardiovascular: Regular rate/rhythm, Normal S1 S2 Gastrointestinal: Normal bowel sounds, No tenderness Musculoskeletal: No tenderness Integumentary: No rashes Neurological: Normal speech, Normal tone, Normal affect - Studies Laboratory Data (last 24 hrs) 08/20/23 08/20/23 08/20/23 23:16 21:16 21:16 WBC 8.30 Hgb 15.0 Hct 42.1 Plt Count 196 PT 11.1 INR 1.01 APTT Cancelled 31.4 Sodium Potassium BUN Creatinine Glucose Magnesium Total Bilirubin AST ALT Alkaline Phosphatase 08/20/23 08/20/23 08/20/23 21:16 21:15 21:15 WBC Cancelled Hgb Cancelled Hct Cancelled Plt Count Cancelled PT Cancelled INR Cancelled APTT Sodium 137 Potassium 3.8 BUN 19 H Creatinine 1.06 Glucose 142 H Magnesium 2.1 Total Bilirubin 0.6 AST 23 ALT 48 Alkaline Phosphatase 75 08/20/23 21:15 WBC Hgb Hct Plt Count PT INR APTT Sodium Cancelled Potassium Cancelled BUN Cancelled Creatinine Cancelled Glucose Cancelled Magnesium Cancelled Total Bilirubin Cancelled AST Cancelled ALT Cancelled Alkaline Phosphatase Cancelled Medications List Reviewed: Yes <Robert Sanchez - Last Filed: 08/21/23 18:53> - Studies Laboratory Data (last 24 hrs) 08/20/23 08/20/23 08/20/23 23:16 21:16 21:16 WBC 8.30 Hgb 15.0 Hct 42.1 Plt Count 196 PT 11.1 INR 1.01 APTT Cancelled 31.4 Sodium Potassium BUN Creatinine Glucose Magnesium Total Bilirubin AST ALT Alkaline Phosphatase 08/20/23 08/20/23 08/20/23 21:16 21:15 21:15 WBC Cancelled Hgb Cancelled Hct Cancelled Plt Count Cancelled PT Cancelled INR Cancelled APTT Sodium 137 Potassium 3.8 BUN 19 H Creatinine 1.06 Glucose 142 H Magnesium 2.1 Total Bilirubin 0.6 AST 23 ALT 48 Alkaline Phosphatase 75 08/20/23 21:15 WBC Hgb Hct Plt Count PT INR APTT Sodium Cancelled Potassium Cancelled BUN Cancelled Creatinine Cancelled Glucose Cancelled Magnesium Cancelled Total Bilirubin Cancelled AST Cancelled ALT Cancelled Alkaline Phosphatase Cancelled <Rodríguez Colon - Last Filed: 08/21/23 19:55> Assessment And Plan - Plan Assessment: NSTEMI, ACS Hyperlipidemia Hypothyroidism Plan: NSTEMI, ACS S/P PCI of the PDA 08/21 Had left heart cath today with PCI of 90% stenosed PDA. Cardiology recommends continuing heparin drip for the next 24 hours as well as obtaining echocardiogram prior to discharge. Continue aspirin, statin, Plavix, beta- max. Chest pain-free at this time. Hyperlipidemia Continue atorvastatin Hypothyroidism Continue home medications. DVT PPX: Heparin drip Code status: Full Discharge Plan: Home Plan to discharge in: 24 Hours - Code Status/Comfort Care Code Status Assessed: Yes (Full code) Critical Care: No Time Spent Managing PTS Care (In Minutes): 25 <Robert Sanchez - Last Filed: 08/21/23 18:53> Physician Review: Patient Assessed, Agree with Above Assessment and Plan <Rodríguez Colon - Last Filed: 08/21/23 19:55>
[2023-08-21] MEDS: ATORVASTATIN 40 MG TAB PO SCH (21:40)
[2023-08-22] MEDS: METOPROLOL TAR 25 MG TAB PO SCH ×2 (06:00→18:00)
[2023-08-22 07:24] LABS: Absolute Lymphocytes (CBC) 1.7 K/uL (0.7-4.9); Hematocrit 40.8 % (39.6-49.0); Lymphocytes % 18.2 % (15.3-44.8); MCV 90.3 fL (80-100); MPV 8.6 fL (7.6-11.3); Platelets 192 thou/uL (152-406); RBC Red Blood Cell Count 4.52 M/uL (4.33-5.43)
--- NOTE | 2023-08-22 08:15 | ECHO ---
HEIGHT: 5 ft 8 in WEIGHT: 231 lb 0.711 oz DATE OF STUDY: 08/21/[address]: Robert Sanchez NP 2-DIMENSIONAL: YES M.MODE: YES DOPPLER: YES COLOR FLOW: YES TDS: YES PORTABLE: YES DEFINITY: BUBBLE STUDY: DIAGNOSIS: NON ST ELEVATION MYOCARDIAL INFARCTION CARDIAC HISTORY: CATHERIZATION: NO SURGERY: NO PROSTHETIC VALVE: NO PACEMAKER: NO MEASUREMENTS (cm) DIASTOLIC (NORMALS) SYSTOLIC (NORMALS) IVSd 0.9 (0.6-1.2) LA Diam 3.3 (1.9-4.0) LVEF 62% LVIDd 4.8 (3.5-5.7) LVIDs 3.2 (2.0-3.5) %FS 34% LVPWd 1.0 (0.6-1.2) Ao Diam 2.3 (2.0-3.7) 2 DIMENSIONAL ASSESSMENT: RIGHT ATRIUM: NORMAL LEFT ATRIUM: NORMAL RIGHT VENTRICLE: NORMAL LEFT VENTRICLE: NORMAL TRICUSPID VALVE: MILD TRICUSPID REGURGITATION MITRAL VALVE: MODERATE MITRAL ANNULAR CALCIFICATION PULMONIC VALVE: NORMAL AORTIC VALVE: NORMAL PERICARDIAL EFFUSION: NONE AORTIC ROOT: NORMAL LEFT VENTRICULAR WALL MOTION: NORMAL DOPPLER/COLOR FLOW: SEE BELOW COMMENTS: 1. NORMAL LEFT VENTRICULAR EJECTION FRACTION 55-60% WITH NORMAL WALL MOTION 2. MILD TRICUSPID REGURGITATION 3. MITRAL ANNULAR CALCIFICATION WITH MILD MITRAL REGURGITATION TECHNOLOGIST: NICHOLE VILLA
[2023-08-22] MEDS: ASPIRIN EC 81 MG TAB PO SCH (09:11)
[2023-08-22] MEDS: CLOPIDOGREL 75 MG TABLET PO SCH (09:11)
--- NOTE | 2023-08-22 15:57 | PN ---
Date of Progress Note: 08/22/2023 Subjective: Seen by bedside. Doing clinically well. Review of Systems: Does not have any chest pain, shortness of breath, orthopnea, cough. No nausea, vomiting, diarrhea. All other systems reviewed are negative. Physical Examination: Vital signs: Reviewed. Head and Neck: Pupils are equal, reactive to light. Intact eye movements. No JVD. No cervical lym phadenopathy. Neck is supple. Thyroid is not enlarged. Lungs: Clear to auscultation bilaterally. No rhonchi, wheezing, or crackles. No accessory muscle u se. Heart: Regular rate and rhythm. No extra sounds. Abdomen: Soft, nontender. Bowel sounds positive. No organomegaly. No masses or hernia. No rigidi ty or rebound. Extremities: No edema, clubbing, or cyanosis. Intact pulses. Skin: No rash. Neuro: Alert, awake, oriented x3. No acute focal deficits appreciated. Investigations: BUN 13, creatinine 0.94. Assessment/recommendations: 1.Non-ST elevation myocardial infarction, status post percutaneous coronary intervention of the post erior descending artery. Continue dual antiplatelet therapy and patient's ejection fraction is sara l on echo. Plavix and aspirin. 2.Dyslipidemia. Continue statin. 3.Hypertension. Blood pressure is elevated. Recommend low-dose LAKE inhibitor. Heparin can be discontinued later today and plan for discharge tomorrow morning. SR/MODL Voice ID: [id number] Report ID: [id number]
--- NOTE | 2023-08-22 17:31 | P.PN ---
Subjective Date of Service: 08/22/23 Chief Complaint: NSTEMI No acute events overnight. He appears well this morning. He states that his chest pain has completely subsided. Spoke with Dr. Wright, who recommends heparin drip until tomorrow morning. If doing well, can be discharged tomorrow. Review of Systems 10-point ROS is otherwise unremarkable Physical Examination - Vital Signs Temperature: 97.7 F Blood Pressure: 115/67 Pulse: 84 Respirations: 18 Pulse Ox (%): 94 - Physical Exam General: Alert, In no apparent distress, Oriented x3 HEENT: Atraumatic, Mucous membr. moist/pink, Sclerae nonicteric Neck: JVD not distended Respiratory: Clear to auscultation bilaterally, Normal air movement Cardiovascular: No edema, Regular rate/rhythm, Normal S1 S2, No gallops, No rubs, No murmurs Gastrointestinal: Normal bowel sounds, Soft and benign, Non-distended, No tenderness, No rebound, No guarding Musculoskeletal: No clubbing Integumentary: No rashes Neurological: Normal speech, Normal affect - Studies Medications List Reviewed: Yes Assessment And Plan - Plan # Non-ST Segment Elevation Myocardial Infarction # Dyslipidemia - Evaluation thus far: - EKG: without STEMI criteria, trend - Serial troponin: 626.9 -> 3172.5 -> 5073.5 - Chest x-ray = "no acute intrathoracic process suspected" - Transthoracic echocardiogram = "1. normal left ventricular ejection fraction 55-60% with normal wall motion 2. mild tricuspid regurgitation 3. mitral annular calcification with mild mitral regurgitation" - Management plan: - Consult Cardiology and spoke with Dr. Wright - S/P [facility] on 08/21 with PCI to PDA (90 % stenosis) - Recommends heparin drip until tomorrow morning - Continue aspirin ,atorvastatin, metoprolol, clopidogrel - Cardiology to consider adding LAKE-inhibitor/ARB as an outpatient # Subclinical Hypothyroidism - TSH 3.97, Free T4 1.01 - Outpatient follow-up Rodríguez Colon M.D.
[2023-08-22] MEDS: ATORVASTATIN 40 MG TAB PO SCH (21:14)
[2023-08-23] MEDS: CLOPIDOGREL 75 MG TABLET PO SCH (07:36)
[2023-08-23] MEDS: ASPIRIN EC 81 MG TAB PO SCH (07:37)
--- NOTE | 2023-08-23 17:35 | P.PN ---
Subjective Date of Service: 08/23/23 Chief Complaint: NSTEMI Overnight, he had several brief pauses on telemetry. One pause was as long as 2.6 seconds. I reviewed with Dr. Wright, who believes that he may have had obstructive sleep apnea. He recommends continuous pulse oximetry tonight. Currently, Mr. Taylor states that he feels well, without any chest pain or palpitations. Review of Systems 10-point ROS is otherwise unremarkable Physical Examination - Vital Signs Temperature: 98.4 F Blood Pressure: 131/81 Pulse: 84 Respirations: 16 Pulse Ox (%): 95 - Studies Medications List Reviewed: Yes Assessment And Plan - Plan - Physical Exam General: Alert, In no apparent distress, Oriented x3 HEENT: Atraumatic, Mucous membr. moist/pink, Sclerae nonicteric Neck: JVD not distended Respiratory: Clear to auscultation bilaterally, Normal air movement Cardiovascular: No edema, Regular rate/rhythm, No murmurs Gastrointestinal: Normal bowel sounds, Soft, Non-distended, No tenderness Integumentary: No rashes Neurological: Normal speech, Normal affect # Non-ST Segment Elevation Myocardial Infarction # Brief Pauses on Telemetry # Dyslipidemia - Evaluation thus far: - EKG: without STEMI criteria, trend - Serial troponin: 626.9 -> 3172.5 -> 5073.5 - Chest x-ray = "no acute intrathoracic process suspected" - Transthoracic echocardiogram = "1. normal left ventricular ejection fraction 55-60% with normal wall motion 2. mild tricuspid regurgitation 3. mitral annular calcification with mild mitral regurgitation" - Management plan: - Consult Cardiology and spoke with Dr. Wright - S/P [facility] on 08/21 with PCI to PDA (90 % stenosis) - Recommends continuous pulse oximetry overnight to monitor for possible JAISON leading to pauses - Continue aspirin, atorvastatin, metoprolol, clopidogrel - Cardiology to consider adding LAKE-inhibitor/ARB as an outpatient # Subclinical Hypothyroidism - TSH 3.97, Free T4 1.01 - Outpatient follow-up Rodríguez Colon M.D.
[2023-08-23] MEDS: ATORVASTATIN 40 MG TAB PO SCH (22:41)
[2023-08-24] MEDS ORDERED: LEVOTHYROXINE SOD 0.1 MG TAB PO SCH (06:30)
[2023-08-24] MEDS: ASPIRIN EC 81 MG TAB PO SCH (09:04)
[2023-08-24] MEDS: CLOPIDOGREL 75 MG TABLET PO SCH (09:04)
[2023-08-24 10:05] VITALS: O2SAT 96
[2023-08-24] MEDS ORDERED: INFLUENZA VACCINE (for 6+ mo) 0.5 ML DOSE IMVAC ONE (11:00)
--- NOTE | 2023-08-24 13:06 | P.DS ---
Admission Date: 08/20/23 Discharge Date: 08/24/23 Disposition: ROUTINE DISCHARGE Discharge Condition: GOOD Reason for Admission: NSTEMI Consultations: 1. Cardiology Procedures: - 08/21/2023 - Left Heart Catheterization Hospital Course: DIAGNOSES: # Non-ST Segment Elevation Myocardial Infarction # Brief Pauses on Telemetry # Dyslipidemia # Hypothyroidism HOSPITAL COURSE: Mr. Lionel Taylor is a pleasant 72 year old male with a past medical history significant for dyslipidemia who was admitted to the [facility] on 08/20/2023 for chest pain. He was admitted to the Medicine service. Upon further evaluation, his EKG was without STEMI criteria. His chest x-ray revealed, "no acute intrathoracic process suspected." His serial troponin was 626.9 -> 3172.5 -> 5073.5. His transthoracic echocardiogram revealed, ""1. normal left ventricular ejection fraction 55-60% with normal wall motion 2. mild tricuspid regurgitation 3. mitral annular calcification with mild mitral regurgitation." Cardiology was consulted and he was evaluated by Dr. Wright. On 08/21/2023, he underwent a left heart catheterization, and required PCI to a 90% stenosed PDA. He was monitored in the hospital and had brief pauses on his telemetry one night. He was monitored for an additional night, without recurrence of these pauses. Today, Dr. Pham has cleared him to be discharged with an outpatient Holter monitor. A beta-max was not given for his CAD due to the brief pauses on telemetry. In regards to a ACEI/ARB, this will be considered at his outpatient Cardiology follow-up. On 08/24/2023, he was seen on rounds and deemed medically stable for discharge. He was discharged with instructions to schedule follow-up appointments with his PCP (Dr. Maurer) and with Cardiology (Dr. Wright). He was provided prescriptions for atorvastatin and clopidogrel. He was given the opportunity to ask questions and reported no further questions. Furthermore, all questions were answered to the best of my ability. A copy of this discharge summary will be sent to the above providers to facilitate continuity of care. Today, I personally spent 25 minutes on his case, of which greater than 50% of the time was spent in patient education, counseling, and coordination of care as described above. - Physical Exam General: Alert, In no apparent distress, Oriented x3 HEENT: Atraumatic, Mucous membr. moist/pink, Sclerae nonicteric Neck: JVD not distended Respiratory: Clear to auscultation bilaterally, Normal air movement Cardiovascular: No edema, Regular rate/rhythm, No murmurs Gastrointestinal: Normal bowel sounds, Soft, Non-distended, No tenderness Integumentary: No rashes Neurological: Normal speech, Normal affect Vital Signs/Physical Exam: Temp Pulse Resp BP Pulse Ox 97.3 F 73 12 110/83 97 08/24/23 08:00 08/24/23 10:00 08/24/23 10:00 08/24/23 10:00 08/24/23 10:00 Laboratory Data at Discharge: WBC 9.10 thou/uL (4.3-10.9) 08/22/23 07:02 Hgb 14.5 g/dL (13.6-17.9) 08/22/23 07:02 Hct 40.8 % (39.6-49.0) 08/22/23 07:02 Plt Count 192 thou/uL (152-406) 08/22/23 07:02 PT 11.1 SECONDS (9.5-12.5) 08/20/23 21:16 INR 1.01 08/20/23 21:16 APTT 52.5 SECONDS (24.3-36.9) H 08/23/23 06:40 Sodium 139 mEq/L (136-145) 08/22/23 07:02 Potassium 4.0 mEq/L (3.5-5.1) 08/22/23 07:02 BUN 13 mg/dL (7-18) 08/22/23 07:02 Creatinine 0.94 mg/dL (0.70-1.30) 08/22/23 07:02 Glucose 125 mg/dL (74-106) H 08/22/23 07:02 Magnesium 2.1 mg/dL (1.6-2.4) 08/20/23 21:16 Total Bilirubin 0.6 mg/dL (0.2-1.0) 08/20/23 21:16 AST 23 U/L (15-37) 08/20/23 21:16 ALT 48 U/L (16-61) 08/20/23 21:16 Alkaline Phosphatase 75 U/L (45-117) 08/20/23 21:16 Triglycerides 325 mg/dL (<150) H 08/21/23 03:41 Cholesterol 127 mg/dL (<200) 08/21/23 03:41 HDL Cholesterol 27 mg/dL (40-60) L 08/21/23 03:41 Cholesterol/HDL Ratio 4.70 08/21/23 03:41 Home Medications: Levothyroxine [Synthroid*] 200 mcg PO [id number] 08/23/23 Aspirin [Aspirin EC] 81 mg PO DAILY #1 08/24/23 Atorvastatin Calcium [Lipitor] 40 mg PO BEDTIME #30 tab 08/24/23 Clopidogrel Bisulfate [Plavix] 75 mg PO DAILY #30 tab 08/24/23 New Medications: Aspirin [Aspirin EC] 81 mg PO DAILY #1 Atorvastatin Calcium [Lipitor] 40 mg PO BEDTIME #30 tab Clopidogrel Bisulfate [Plavix] 75 mg PO DAILY #30 tab Physician Discharge Instructions: 1. Please call and schedule a follow-up appointment with your PCP (Dr. Maurer) in 3-5 days - Your thyroid blood work was slightly abnormal. Please have your PCP repeat this at your upcoming visit. - As we discussed, please talk to your PCP about getting a sleep study to evaluate for sleep apnea because this may be a cause for the pauses in your heart rhythm while sleeping 2. Please call and schedule a follow-up appointment with Cardiology (Dr. Wright) in 3-5 days - He we will schedule you for an at home EKG monitoring (Holter monitor) Medication changes: 1. Please take Aspirin 81 mg once per day 2. Please take Atorvastatin 40 mg once per night 3. Please take Clopidogrel (Plavix) 75 mg once per day You have been given a 1 month prescription for these medications. Please follow- up with your PCP for medication refills/adjustments Diet:AHA Activity:Ad christina PHYSICIAN'S DISCHARGE INSTRUCTIONS Diet: AHA Activity: Ad crhistina Followup: Adarsh Maurer MD [Primary Care Provider] - Brandon Wright MD [ACTIVE - CAN ADMIT] - Time spent managing pt's care (in minutes): 25
[2023-08-24 13:12] VITALS: BP 126/75; TEMP 97.7
--- NOTE | 2023-08-24 14:23 | PN ---
Date of Progress Note: 08/24/2023 Subjective: Seen by bedside. Review of Systems: No chest pain, no shortness of breath, orthopnea, cough. No nausea, vomiting, diarrhea. All other s ystems reviewed are negative. Physical Examination: Vital Signs: Reviewed. Head and Neck: Pupils are equal, reactive to light. Intact eye movements. No JVD. No cervical lym phadenopathy. Neck: Supple. Thyroid is not enlarged. Lungs: Clear to auscultation bilaterally. No rhonchi, wheezing or crackles. No accessory muscle us e. Heart: Regular rate and rhythm. No extra sounds. Abdomen: Soft, nontender. Bowel sounds positive. No organomegaly. No masses or hernia. No rigidi ty or rebound. Extremities: No edema, clubbing or cyanosis. Intact pulses. Skin: No rash. Neurologic: Alert, awake, oriented x3. No acute focal deficits appreciated. Investigations: BUN 13, creatinine 0.94. Assessment/recommendation: 1.Non-ST elevation myocardial infarction, status post PCI of the LAD, doing well. Continue dual ant iplatelet therapy. 2.Dyslipidemia. Continue statin. 3.Bradycardia at night. I will plan for outpatient Holter monitor. Patient can be released from my standpoint. /INDIGO Voice ID: [id number] Report ID: [id number]
== END 2023-08-24 14:00 | disposition home or self-care (01) | DRG 247 ==
LOC: ER 21:02 → ERHOLD 23:29 → 2ND 08-21 13:45 → 3RD-ICU 08-23 23:42
PROVIDERS: ADMIT Internal Medicine; ATTEND Internal Medicine
PROC: 027034Z Dilation of Coronary Artery, One Artery with Drug-eluting Intraluminal Device, Percutaneous Approach (ICD-10-PCS; principal; 2023-08-21)
PROC: 4A023N7 Measurement of Cardiac Sampling and Pressure, Left Heart, Percutaneous Approach (ICD-10-PCS; 2023-08-21)
PROC: B2111ZZ Fluoroscopy of Multiple Coronary Arteries using Low Osmolar Contrast (ICD-10-PCS; 2023-08-21)
DX: I21.4 Non-ST elevation (NSTEMI) myocardial infarction (principal); E78.5 Hyperlipidemia, unspecified; E03.8 Other specified hypothyroidism; I08.3 Combined rheumatic disorders of mitral, aortic and tricuspid valves; R00.1 Bradycardia, unspecified; Z23 Encounter for immunization; Z79.82 Long term (current) use of aspirin; Z79.890 Hormone replacement therapy; Z79.899 Other long term (current) drug therapy
CPT/HCPCS: 36415; 71045; 76937; 80048; 80061; 80076; 83735; 83880; 84439; 84443; 84484; 85025; 85347; 85610; 85730; 90471; 93005; 93306; 93458; 94760; 99285; C1725; C1760; C1893; C9600; G0269; J1644; J2001; J2250; J2310; J2405; J3010; J7040; Q2035; Q9966